=== PATIENT | female | born 1970 | race Caucasian/White ===

== ENCOUNTER 2023-06-24 10:25 | Day surgery (SDC) | payer BC ==
[~2023-06-24 10:25] MED LIST: LACTATED RINGERS 1,000 ML IV SCH; LIDOCAINE 1% (10MG/ML) FOR IV START INTRADERMA PRN; ONDANSETRON 4 MG/2 ML VIAL IVP PRN
[2023-06-24 10:57] VITALS: TEMP 97.8
[2023-06-24] MEDS ORDERED: PROPOFOL 10 MG/ML 20 ML VIAL IV ONE (11:34)
--- NOTE | 2023-06-24 11:41 | P.GSHP ---
History of Present Illness H&P Date: 06/24/23 Chief Complaint: Colon cancer screening 53-year-old female here for colonoscopy. She has not had one before. No family history of colon cancer. No bowel complaints. Past Medical History Past Medical History: Cancer Additional Past Medical History / Comment(s): melanoma 2021-had removed History of Any Multi-Drug Resistant Organisms: None Reported Past Surgical History: Orthopedic Surgery Additional Past Surgical History / Comment(s): reconstruction left knee Past Anesthesia/Blood Transfusion Reactions: No Reported Reaction Smoking Status: Never smoker Medications and Allergies Home Medications Medication Instructions Recorded Confirmed Type No Known Home Medications 06/19/23 06/24/23 History Allergies Allergy/AdvReac Type Severity Reaction Status Date / Time No Known Allergies Allergy Verified 06/24/23 10:49 Surgical - Exam Vital Signs Temp Pulse Resp BP Pulse Ox 97.8 F 66 16 128/64 99 06/24/23 10:56 06/24/23 10:56 06/24/23 10:56 06/24/23 10:56 06/24/23 10:56 Physical exam: General: Well-developed, well-nourished HEENT: Normocephalic, sclerae nonicteric Abdomen: Nontender, nondistended Extremities: No edema Neuro: Alert and oriented Assessment and Plan (1) Colon cancer screening Narrative/Plan: Will proceed with colonoscopy at this time. Current Visit: Yes Status: Acute Code(s): Z12.11 - ENCOUNTER FOR SCREENING FOR MALIGNANT NEOPLASM OF COLON SNOMED Code(s): 317423788
--- NOTE | 2023-06-24 11:53 | P.PCN ---
Date of Procedure: 06/24/23 Procedure(s) Performed: PREOPERATIVE DIAGNOSIS: Colon cancer screening POSTOPERATIVE DIAGNOSIS: Normal exam PROCEDURE: Colonoscopy ANESTHESIA: MAC SURGEON: J Luis Tolbert M.D. SPECIMENS: None ENDOSCOPIC PROCEDURE: The patient was placed on the endoscopy table in the left decubitus position. The Olympus colonoscope was inserted into the anus and passed under direct visualization to the base of the cecum. The appendiceal orifice was visualized. From that point the scope was slowly withdrawn inspecti ng all surfaces carefully. There were no neoplastic inflammatory or polypoid lesions throughout the cecum, ascending, transverse, descending, sigmoid and rectum. There was no visible diverticulosis noted. Digital rectal examination was normal. The patient was taken to the recovery room in stable condition per anesthesia guidelines. RECOMMENDATIONS: Resume diet. Repeat colonoscopy 10 years.
[2023-06-24 12:32] VITALS: BP 110/71; PULSE 68; RESP 18
== END 2023-06-24 12:34 | disposition home or self-care (01) ==
LOC: ORWHC2ENDO 10:25
PROVIDERS: ATTEND Surgery
DX: Z12.11 Encounter for screening for malignant neoplasm of colon (principal); Z79.899 Other long term (current) drug therapy
CPT/HCPCS: 45378; 81025; J2704

== ENCOUNTER → 2024-10-27 | Outpatient (CLI) | payer BC ==
--- NOTE | 2024-10-27 11:59 | CT ---
INDICATION: Patient age:Female; 54 years old; Reason for study: [facility] Protocol for left knee replacement, M17.12 UNILATERAL PRIMARY OSTEOARTHRITIS, LEFT KNE; PHH. COMPARISON: None TECHNIQUE: Thin section axial CT imaging of the entire left lower extremity was performed per [facility] protocol, wit hout the administration of IV contrast. Additional axial images of the bilateral hips and ankles with other knee were also obtained. Reformatted images in coronal and sagittal views obtained. FINDINGS: There is no evidence of acute fracture or dislocation. The hips are grossly unremarkable. Degenerative changes of the pubic symphysis. Tricompartmental joint space narrowing with marginal osteophytosis and subchondral cystic changes inv olving the left knee. Consistent with moderate to severe osteoarthritic change. Postsurgical changes with somewhat obliquely oriented screw involving the distal lateral femur additional screw tract iden tified involving the medial proximal tibia from probable ACL reconstruction. Small knee joint effusio n. Lateral right tibiofemoral joint is narrowed with subchondral cystic change consistent with mild to m oderate osteoarthritic change. The ankles grossly unremarkable. Right plantar calcaneal enthesophyte. The visualized soft tissues appear grossly unremarkable within the limits of unenhanced CT. IMPRESSION: 1. [facility] protocol for left knee joint replacement. [facility], , 10/27/2024 11:56 AM
== END | disposition home or self-care (01) ==
LOC: RADCTMAIN 10:53
PROVIDERS: ATTEND Orthopaedic Surgery
DX: M17.12 Unilateral primary osteoarthritis, left knee (principal)

== ENCOUNTER → 2024-10-30 | Outpatient (CLI) | payer BC ==
[2024-10-30 11:54] LABS: Prothrombin Time 10.5 sec (10.0-12.5)
[2024-10-30 22:58] LABS: HCT 41.5 % (37.2-46.3); HGB 13.6 g/dL (12.0-15.0); MCHC 32.8 g/dL (32.0-37.0); MCV 85.4 FL (80.0-97.0); Mean Platelet Volume 10.2 FL (9.5-12.2); NRBC Per 100 WBC 0 X 10*3/uL (0.00-0.01); Platelet Count 245 X 10*3/uL (140-440); RBC 4.86 X 10*6/uL (4.10-5.20); RDW 12.7 % (11.5-14.5); WBC 4.67 X 10*3/uL (4.50-10.00)
[2024-10-30 23:11] LABS: ALT 21 U/L (8-44); AST 19 U/L (13-35); Albumin 4.7 g/dL (3.8-4.9); Albumin/Globulin Ratio 2.24 Ratio (1.60-3.17); Alkaline Phosphatase 106 U/L (41-126); BUN/Creat Ratio 13.67 Ratio (12.00-20.00); Blood Urea Nitrogen 12.3 mg/dL (9.0-27.0); Calcium 9.3 mg/dL (8.7-10.3); Carbon Dioxide 26.4 mmol/L (21.6-31.8); Chloride 106 mmol/L (96-109); Globulin 2.1 g/dL (1.6-3.3); Glucose 103 mg/dL (70-110); Potassium 4.4 mmol/L (3.5-5.5); Sodium 142 mmol/L (135-145); Total Protein 6.8 g/dL (6.2-8.2)
== END | disposition home or self-care (01) ==
LOC: LABPAT 11:02
PROVIDERS: ATTEND Orthopaedic Surgery
DX: Z01.818 Encounter for other preprocedural examination (principal); M17.12 Unilateral primary osteoarthritis, left knee; R94.31 Abnormal electrocardiogram [ECG] [EKG]
CPT/HCPCS: 80053; 83036; 85027; 85610; 85730; 87070; 93005

== ENCOUNTER 2024-11-19 08:05 | Day surgery (SDC) | payer BC ==
[~2024-11-19 08:05] MED LIST changes: -LACTATED RINGERS 1,000 ML IV SCH; -LIDOCAINE 1% (10MG/ML) FOR IV START INTRADERMA PRN; -ONDANSETRON 4 MG/2 ML VIAL IVP PRN; +TRANEXAMIC 1,000 MG/100ML-NACL 1,000 MG in SALINE 1 100ML.BAG IV PRN; +TRANEXAMIC 1,000 MG/100ML-NACL 1,000 MG in SALINE 1 100ML.BAG IVPB PRN
[2024-11-19] MEDS ORDERED: HYDROmorphone 0.5 MG/0.5 ML SYRINGE IVP PRN ×3 (08:18→11:30)
[2024-11-19] MEDS: IV FLUID CONTINUATION 1,000 ML IV ONE (08:38)
[2024-11-19] MEDS: ACETAMINOPHEN TAB 500 MG TAB PO PRN (08:58)
[2024-11-19] MEDS: DOCUSATE 100 MG CAP PO PRN (08:58)
[2024-11-19] MEDS: oxyCODONE ER 10 MG TAB.ER.12H PO PRN (08:58)
--- NOTE | 2024-11-19 08:58 | P.HPOR ---
History of Present Illness H&P Date: 11/19/24 Very pleasant 54 year old female with a remote history of an ACL tear and reconstruction that has developed end stage knee arthritis. She presents today for a total knee replacement. Past Medical History Past Medical History: Cancer, Osteoarthritis (OA) Additional Past Medical History / Comment(s): melanoma 2021-had removed History of Any Multi-Drug Resistant Organisms: None Reported Past Surgical History: Orthopedic Surgery Additional Past Surgical History / Comment(s): ACL reconstruction Lt. knee, colonoscopy, melanoma removal nose x 4 surgeries Past Anesthesia/Blood Transfusion Reactions: No Reported Reaction Smoking Status: Never smoker - Past Family History Father Family Medical History: Congestive Heart Failure (CHF), Diabetes Mellitus Mother Family Medical History: Diabetes Mellitus Brother(s) Family Medical History: Diabetes Mellitus Medications and Allergies Home Medications Medication Instructions Recorded Confirmed Type No Known Home Medications 06/19/23 11/19/24 History Allergies Allergy/AdvReac Type Severity Reaction Status Date / Time No Known Allergies Allergy Verified 11/19/24 08:38 Physical Examination Alert and oriented Head NC/AT Non labored breathing Palpable pulses LEFT LE: healed incision over knee. Mild effusion. Moves toes/ankle up/down Results Xrays show severe knee OA and metallic interference screw in femur Assessment and Plan Assessment: Severe post-traumatic knee OA (prior ACL reconstruction) Plan: Ana has failed non-surgical treatment and presents today for a total knee replacement.
[2024-11-19] MEDS: fentaNYL (PF) 50 MCG/ML 2 ML AMP IVP PRN (09:01)
[2024-11-19] MEDS: MIDAZOLAM 2 MG/2 ML VIAL IV PRN (09:01)
[2024-11-19] MEDS: FAMOTIDINE 20 MG/2 ML VIAL IVP PRN (09:02)
[2024-11-19] MEDS: DEXAMETHASONE SOD PHOSPHATE 10 MG/ML 1 ML VIAL IV PRN (09:02)
[2024-11-19] MEDS: KETOROLAC 15 MG/ML 1 ML VIAL IVP PRN (09:02)
[2024-11-19] MEDS: ONDANSETRON 4 MG/2 ML VIAL IVP PRN (09:02)
[2024-11-19] MEDS: LACTATED RINGERS 1,000 ML IV SCH (09:03)
--- NOTE | 2024-11-19 09:11 | P.ANPRN ---
Procedure Note - Anesthesia - Nerve Block Performed Left Adductor Canal Single Time Out Performed: Yes Date of Procedure: 11/19/24 Procedure Start Time: 09:00 Procedure Stop Time: 09:07 Location of Patient: PreOp Indication: Acute Post-Operative Pain, Requested by Surgeon Sedation Type: Sedate with meaningful contact maintained Preparation: Sterile Prep Position: Supine Needle Types: Pajunk Needle Gauge: 21 Ultrasound used to visualize needle placement: Yes Ultrasound used to observe medication spread: Yes Injectate: 0.5% Ropivacaine (see comment for volume) (20 mL +10 mL of normal saline +4 mg of dexamethasone) Blood Aspirated: No Pain Paresthesia on Injection Noted: No Resistance on Injection: Normal Image Stored and Saved: Yes Events: Uneventful and Well Tolerated
--- NOTE | 2024-11-19 09:12 | P.ANPRN ---
Procedure Note - Anesthesia - Nerve Block Performed Left Avtarck Single Time Out Performed: Yes Date of Procedure: 11/19/24 Procedure Start Time: :08 Procedure Stop Time: :15 Location of Patient: PreOp Indication: Acute Post-Operative Pain, Requested by Surgeon Sedation Type: Sedate with meaningful contact maintained Preparation: Sterile Prep Position: Right Lateral Needle Types: Pajunk Needle Gauge: 21 Ultrasound used to visualize needle placement: Yes Ultrasound used to observe medication spread: Yes Injectate: 0.5% Ropivacaine (see comment for volume) (20 mL +10 mL of normal saline +4 mg of dexamethasone) Blood Aspirated: No Pain Paresthesia on Injection Noted: No Resistance on Injection: Normal Image Stored and Saved: Yes Events: Uneventful and Well Tolerated
[2024-11-19] MEDS ORDERED: LIDOCAINE 1% INJ 10MG/ML (20 ML MDV) ONE (09:33)
[2024-11-19] MEDS ORDERED: ROPIVACAINE 5 MG/ML 30 ML VIAL ONE (09:33)
[2024-11-19] MEDS ORDERED: fentaNYL (PF) 50 MCG/ML 2 ML AMP ONE (09:33)
[2024-11-19] MEDS ORDERED: PROPOFOL 10 MG/ML 20 ML VIAL IV ONE (09:33)
[2024-11-19] MEDS ORDERED: NEOSTIGMINE 1 MG/ML 10 ML VIAL ONE (09:33)
[2024-11-19] MEDS ORDERED: TRANEXAMIC 1,000 MG/100ML-NACL PREMIX BAG ONE (09:33)
[2024-11-19] MEDS ORDERED: ePHEDrine 50 MG/ML 1 ML VIAL ONE (09:33)
[2024-11-19] MEDS ORDERED: SUCCINYLCHOLINE CHLORIDE 200 MG/10 ML VIAL IV ONE (09:33)
[2024-11-19] MEDS ORDERED: DEXAMETHASONE SOD PHOSPHATE 4 MG/ML 1 ML VIAL ONE (09:33)
[2024-11-19] MEDS ORDERED: GLYCOPYRROLATE 0.2 MG/ML 2 ML VIAL ONE (09:33)
[2024-11-19] MEDS ORDERED: ROCURONIUM 10 MG/ML (5 ML VIAL) IV ONE (09:33)
[2024-11-19] MEDS ORDERED: SODIUM CHLORIDE 0.9% (PF) 10 ML VIAL ONE (09:33)
[2024-11-19] MEDS: ROPIVACAINE/EPI/CLONIDINE/KET 50 ML SYRINGE MISCELLANE PRN (10:01)
--- NOTE | 2024-11-19 11:23 | P.OP ---
Date of Procedure: 11/19/24 Preoperative Diagnosis: Severe, post-traumatic knee osteoarthritis, prior ACL reconstruction Postoperative Diagnosis: Same Procedure(s) Performed: 1. Left total knee arthroplasty 2. Computer assisted musculoskeletal navigation using CT/MRI images Implants: 1. Simran Triathlon CR Femur Size #4 2. Simran Triathlon [place] Tibial Base Size #4 3. Sheldon Triathlon CS poly Size #3, 10-mm 4. Sheldon Triathlon all poly patella, Size #32 Anesthesia: RO, regional Surgeon: Eamon Ochoa Full Stack Web Developer #1: Elver Rivas Estimated Blood Loss (ml): 100 IV fluids (ml): 800 Pathology: none sent Condition: stable Disposition: PACU Indications for Procedure: I met with the patient preoperatively in the office setting and discussed treatment of their symptomatic knee arthritis. They failed a long course of nonsurgical treatment and elected to proceed with an elective total knee replacement. I discussed the potential risks and complications at length and gave them ample time to ask questions. Risks discussed included: risks from anesthesia, superficial site surgical infection, acute and/or chronic periprosthetic joint infection, delayed wound healing, drainage, wound necrosis, instability, stiffness, stiffness requiring manipulation and/or revision surgery, damage to local blood vessels or nerves, aseptic loosening of the implants, extensor mechanism issues including disruption, patellar maltracking, avascular necrosis etc., continued or worsened knee pain, generalized dissatisfaction with surgical outcome, need for revision surgery, an inability to regain preinjury level of function, DVT, PE, other medical complications, and possibly loss of life or limb. The patient voiced their understanding that while these are the most common complications other less common complications a re possible. They provided both their verbal and written consent to go forward with surgery. Operative Findings: Severe tri-compartmental knee osteoarthritis Description of Procedure: The patient was identified in preoperative holding and the correct operative extremity was verified and marked with a marker. I reviewed the consent form with the patient at length. All of their questions were answered. The patient was given a block by anesthesia. They were then brought back to the operating room. They were transferred onto the operating room table where a general anesthetic, preoperative antibiotics, and tranexamic acid were administered by anesthesia. A tourniquet was applied to the proximal aspect of the operative extremity. The contralateral extremity was padded under the heel and secured to the operating room table with a nonsterile blue towel and tape. The ipsilateral arm was carefully draped across the patient's chest and secured with a pillow and foam. A post was applied over the lateral aspect of the ipsilateral thigh and a bolster was placed under the ipsilateral foot. I verified that the operative extremity was stable and the knee was flexed to 90. The operative extremity was then placed in a leg sharma, nonsterile drapes were applied, and the extremity was prepped and draped sterilely in the standard sterile fashion. Prior to starting surgery timeout was performed identifying the correct patient, operative extremity, and procedure. The leg was then elevated, exsanguinated with an Esmarch bandage, and the tourniquet was inflated. An anterior midline incision was made sharply with a scalpel. Once I had dissected deep to the superficial fascial layer medial and lateral flaps were elevated. A medial parapatellar arthrotomy was created. Upon opening the knee joint there were diffuse arthritic changes in all 3 compartments. The anterior horn of the medial meniscus were sharply released and a medial release was performed around the posterior medial corner of the knee to facilitate retractor placement. The fat pad was excised with electrocautery. The patella was found to be severely arthritic and a provisional cut was made with a sagittal saw to facilitate mobilization of the extensor mechanism during the procedure. Remnants of the ACL and PCL were then excised from the notch. 4 mm pins were then placed within the incision in the medial distal femur and proximal tibia. Arrays were applied to the pins and I verified they were completely tightened. The knee was then registered with the Cloudyn robot and manipulations in implant position were made to balance the knee and opitmize implant position. Using the Anthony robotic saw all cuts were made in accordance with our plan. After all bony fragments had been removed the cuts were verified with the planar probe. The tibia was then subluxed forward and sized. The knee was brought into flexion and a lamina aquatic physiotherapist was placed to allow removal of the meniscal remnants both medially and laterally as well as posterior osteophytes. Local anesthetic was then infiltrated around the joint capsule. Trial implants were then placed within the knee. Range of motion and collateral ligament tension was then evaluated. Adjustments in implant size and position were then made accordingly. Once the knee was felt to be appropriately balanced the Anthony pins were removed. The patella was then recut, sized, and punched. A trial patellar button was then placed. With the trial components in place, the patella tracked midline. The femur was then drilled and the trial component removed. The trial tibial component was then appropriately rotated, pinned, and prepared for the keel. All trial components were then removed from the knee. The knee was thoroughly irrigated with pulsatile lavage. Cement was prepared via vacuum mixing in a bowl on the back table. I then hand pressurized cement into the femur and tibia and placed the implants beginning with the tibial base tray and poly liner, femoral component, and finally the patellar button. All extruded cement was removed including from the pin sites. Once the cement had hardened the knee was evaluated one final time with the final polyethylene liner in place. The knee had full extension and flexion and felt stable to varus and valgus stress throughout the arc of motion. The tourniquet was released and with the tourniquet down the patella tracked midline. All bleeders were controlled with electrocautery. The knee was then soaked for 3 minutes with a dilute Betadine soak. The knee was thoroughly irrigated using 3 L of sterile saline and pulsatile lavage. The extensor mechanism was then reapproximated using pop off Vicryl sutures followed by a running barbed suture. The knee was then closed in layers with a 0 strata fix for the deep fascial layer, 2-0 strata fix for the superficial subcutaneous layer and Monocryl and Steri-Strips for the skin. A sterile dressing was applied. I verified that all instrument, sponge, and sharp counts were correct. The patient was then transferred off the operating room table, extubated, and brought to recovery having tolerated the procedure well. Elver Rivas PA-C was required as a skilled escrow assistant for patient positioning, draping, exposure, retraction, closure of wound and application of dressing PLAN: The patient can weight-bear as tolerated on the operative extremity. DVT prophylaxis with aspirin 81 mg twice a day based on preoperative risk stratification. Internal medicine for perioperative medical management. 2 doses of post-operative antibiotics. Physical therapy for gait training. Follow-up in the office in 2 weeks for wound check and x-rays of the knee including an AP and lateral.
[2024-11-19] MEDS ORDERED: HYDROmorphone 1 MG/ML 1 ML SYRINGE IVP PRN (11:30)
[2024-11-19] MEDS ORDERED: NALOXONE 0.4 MG/ML 1 ML VIAL IV PRN (11:30)
[2024-11-19] MEDS ORDERED: bisacodyL 10 MG SUPP RECTAL PRN (11:30)
[2024-11-19] MEDS ORDERED: MAGNESIUM HYDROXIDE 2,400 MG/30 ML CUP PO PRN (11:30)
[2024-11-19] MEDS ORDERED: ONDANSETRON 4 MG/2 ML VIAL IVP PRN (11:30)
[2024-11-19] MEDS ORDERED: NA PHOS,M-B/NA PHOS,DI-BA 133 ML ENEMA RECTAL PRN (11:30)
[2024-11-19] MEDS ORDERED: hydrOXYzine pamoate 25 MG CAP PO PRN (11:30)
[2024-11-19] MEDS ORDERED: diazePAM 5 MG TAB PO PRN ×2 (11:30)
--- NOTE | 2024-11-19 12:44 | XR ---
EXAMINATION TYPE: XR knee limited LT DATE OF EXAM: 11/19/2024 CLINICAL HISTORY: Postoperative evaluation Two views of the left knee are submitted. Identified are changes of total knee arthroplasty with fem oral and tibial components appearing well seated. Postsurgical soft tissue changes are noted. Align ment is anatomic. [facility], , 11/19/2024 12:42 PM
[2024-11-19] MEDS: SODIUM CHLORIDE 0.9% 1,000 ML IV SCH (13:32)
--- NOTE | 2024-11-19 16:18 | P.HPIM ---
History of Present Illness H&P Date: 11/19/24 54 year old F with no PMH presents to [facility] for elective surgery. She underwent L total knee arthroplasty with Dr. Ochoa. [facility] consulted for medical management of this patient. Patient reports well controlled pain in her left knee. Has not urinated yet. Not passing gas. No other complaints. L knee XR shows well seated changes of total knee arthroplasty with femoral and tibial components. General: non toxic, no distress, appears at stated age Derm: warm, dry Head: atraumatic, normocephalic, symmetric Eyes: EOMI, no lid lag, anicteric sclera Mouth: no lip lesion, mucus membranes moist Cardiovascular: Good distal perfusion in all 4 extremities Lungs: Breathing comfortably Ext: no gross muscle atrophy, no edema, no contractures Psych: Alert, oriented, appropriate affect Based on my assessment of this patient, this patient meets a high complexity level of care. Status post left total knee arthroplasty on 11/19 managed by Orthopedic surgery. CODE STATUS: FULL CODE DVT Prophylaxis: ASA 81 mg PO BID GI Prophylaxis: Designated medical POA if patient is not able to make medical decisions for themselves: I have reviewed the following transportation consultant notes: Operative note reviewed. I have reviewed the results of the following tests: KUB. I have ordered the following tests: Agree with CBC. I have discussed the care of this patient with the following independent historian: I have independently interpreted the following test below: I have discussed the management of this patient with the following physician: Past Medical History Past Medical History: Cancer, Osteoarthritis (OA) Additional Past Medical History / Comment(s): melanoma 2021-had removed History of Any Multi-Drug Resistant Organisms: None Reported Past Surgical History: Orthopedic Surgery Additional Past Surgical History / Comment(s): ACL reconstruction Lt. knee, colonoscopy, melanoma removal nose x 4 surgeries Past Anesthesia/Blood Transfusion Reactions: No Reported Reaction Past Psychological History: No Psychological Hx Reported Smoking Status: Never smoker Past Alcohol Use History: Occasional Additional Past Alcohol Use History / Comment(s): 1 drink/month Past Drug Use History: None Reported - Past Family History Father Family Medical History: Congestive Heart Failure (CHF), Diabetes Mellitus Mother Family Medical History: Congestive Heart Failure (CHF), Diabetes Mellitus Brother(s) Family Medical History: Diabetes Mellitus Medications and Allergies Home Medications Medication Instructions Recorded Confirmed Type Aspirin 81 mg PO BID #60 tab 11/19/24 Rx Diclofenac Sodium [Voltaren] 75 mg PO BID #60 tab 11/19/24 Rx Docusate [Colace] 100 mg PO BID #60 capsule 11/19/24 Rx HYDROcodone/APAP 5-325MG [[place] 1 - 2 tab PO Q6HR PRN #56 tab 11/19/24 Rx 5-325] Omeprazole [PriLOSEC] 40 mg PO DAILY #30 cap 11/19/24 Rx Ondansetron [Zofran] 4 mg PO Q8HR PRN #20 tab 11/19/24 Rx Allergies Allergy/AdvReac Type Severity Reaction Status Date / Time No Known Allergies Allergy Verified 11/19/24 08:38 Physical Exam Vitals: Vital Signs Temp Pulse Pulse Resp BP Pulse Ox 11/19/24 13:50 97.5 F L 97 16 123/75 97 11/19/24 13:30 79 17 127/70 97 11/19/24 13:15 60 16 124/62 95 11/19/24 13:00 65 15 127/63 96 11/19/24 12:45 60 16 125/65 95 11/19/24 12:30 71 16 124/64 96 11/19/24 12:15 78 17 127/62 95 11/19/24 12:00 84 16 148/78 100 11/19/24 11:47 96.8 F L 73 15 160/72 100 11/19/24 09:17 57 L 16 128/68 11/19/24 08:45 97.0 F L 65 16 118/69 98 Intake and Output 11/19/24 11/19/24 11/19/24 06:59 14:59 22:59 Intake Total 850 Output Total 200 Balance 650 Intake: IV 850 Output: Estimated Blood Loss 200 Other: Weight 88.8 kg Thrombosis Risk Factor Assmnt - Choose All That Apply Any of the Below Risk Factors Present?: Yes Each Factor Represents 1 point: Age 41-60 years, Obesity (BMI >25) Other Risk Factors: Yes Other congenital or acquired thrombophilia - If yes, enter type in comment: No Thrombosis Risk Factor Assessment Total Risk Factor Score: 2 Thrombosis Risk Factor Assessment Level: Low Risk
[2024-11-19] MEDS: HYDROcodone/APAP 5-325MG 1 EACH TAB PO PRN (16:47)
[2024-11-19 20:17] VITALS: RESP 17
[2024-11-19] MEDS: SENNOSIDES-DOCUSATE SODIUM 1 EACH TAB PO SCH (21:57)
[2024-11-19] MEDS: ASPIRIN 81 MG PO SCH (21:57)
[2024-11-19] MEDS ORDERED: TEMAZEPAM 15 MG CAP PO PRN (22:00)
--- NOTE | 2024-11-20 08:12 | P.DS ---
Providers Date of admission: 11/19/2024 Attending physician: Eamon Ochoa Consults: 11/19/24 11:30 Consult Physician Routine Consulting Provider: Akil Barajas Consult Reason/Comments: post op medical management Do you want consulting provider notified?: Yes Primary care physician: [facility] Course: the patient is a very pleasant 54-year-old female who underwent a complicated total knee replacement yesterday. Following surgery she was transferred to the orthopedic floor. She received 2 doses of postoperative antibiotics. She was transitioned from IV to oral pain medication. I saw her on postoperative day #1 and she was doing well. Her dressing was intact with no sign of drainage or strike through. Motor and sensory function were intact. She worked with physical therapy and did well. She was ultimately cleared for discharge home. Patient Condition at Discharge: Good Plan - Discharge Summary Discharge Rx Participant: Yes New Discharge Prescriptions: New Diclofenac Sodium [Voltaren] 75 mg PO BID #60 tab Omeprazole [PriLOSEC] 40 mg PO DAILY #30 cap Aspirin 81 mg PO BID #60 tab Docusate [Colace] 100 mg PO BID #60 capsule HYDROcodone/APAP 5-325MG [[place] 5-325] 1 - 2 tab PO Q6HR PRN #56 tab PRN Reason: Pain Ondansetron [Zofran] 4 mg PO Q8HR PRN #20 tab PRN Reason: Nausea Discharge Medication List Aspirin 81 mg PO BID #60 tab 11/19/24 [Rx] Diclofenac Sodium [Voltaren] 75 mg PO BID #60 tab 11/19/24 [Rx] Docusate [Colace] 100 mg PO BID #60 capsule 11/19/24 [Rx] HYDROcodone/APAP 5-325MG [[place] 5-325] 1 - 2 tab PO Q6HR PRN #56 tab 11/19/24 [Rx] Omeprazole [PriLOSEC] 40 mg PO DAILY #30 cap 11/19/24 [Rx] Ondansetron [Zofran] 4 mg PO Q8HR PRN #20 tab 11/19/24 [Rx] Follow up Appointment(s)/Referral(s): Eamon Ochoa MD [Medical Doctor] - 2 Weeks Activity/Diet/Wound Care/Special Instructions: 1. Weight-bear as tolerated on your operative extremity unless instructed otherwise. Use a walker or other assistive device to ambulate. 2. Leave surgical dressing in place. If your dressing becomes saturated with blood, there is drainage, or the dressing becomes loose please contact the office. 3. It is okay to shower with your surgical dressing, but do not submerge in water (no hot tubs, bath's, swimming etc.) 4. Make sure to take her blood clot prevention medication as prescribed (aspirin, Eliquis, Xarelto, and Plavix are commonly prescribed medications for blood clot prevention) 5. While taking [place] or Percocet for pain make sure you're taking a stool softener (Colace) and drink lots of water. 6. Keep all follow-up appointments as scheduled. You will usually be seen in 1-2 weeks following surgery. 7. Please contact the office with any questions or concerns [phone] Discharge Disposition: HOME WITH HOME HEALTH SERVICES
[2024-11-20] MEDS: MULTIVITAMINS, THERA 1 EACH TAB PO SCH (08:43)
[2024-11-20 08:48] VITALS: PULSE 67; TEMP 97.9
[2024-11-20 08:53] VITALS: BP 116/74
[2024-11-20 10:53] LABS: Basophils # (A) 0.03 X 10*3/uL (0.00-0.10); Basophils % (A) 0.2 %; Eosinophils # (A) 0 X 10*3/uL (0.04-0.35); Eosinophils % (A) 0 %; HCT 34.3 % (37.2-46.3); HGB 11.2 g/dL (12.0-15.0); Lymphocytes # (A) 0.96 X 10*3/uL (0.90-5.00); MCH 28.4 pg (27.0-32.0); MCHC 32.7 g/dL (32.0-37.0); MCV 86.8 FL (80.0-97.0); Mean Platelet Volume 10.4 FL (9.5-12.2); Monocytes # (A) 1.04 X 10*3/uL (0.20-1.00); Monocytes % (A) 6.5 %; NRBC Per 100 WBC 0 X 10*3/uL (0.00-0.01); Neutrophils % (A) 86.9 %; Platelet Count 243 X 10*3/uL (140-440); RBC 3.95 X 10*6/uL (4.10-5.20); RDW 12.8 % (11.5-14.5); WBC 15.89 X 10*3/uL (4.50-10.00)
[2024-11-20] MEDS: HYDROcodone/APAP 10-325MG 1 EACH TAB PO PRN (12:23)
== END 2024-11-20 14:40 | disposition home health service (06) ==
LOC: OR 08:05 → 4SSUR 13:28 → OR 11-20 14:40
PROVIDERS: ATTEND Orthopaedic Surgery
DX: M17.32 Unilateral post-traumatic osteoarthritis, left knee (principal); Z96.653 Presence of artificial knee joint, bilateral; Z98.890 Other specified postprocedural states; Z82.49 Family history of ischemic heart disease and other diseases of the circulatory system; Z83.3 Family history of diabetes mellitus; Z79.82 Long term (current) use of aspirin; Z79.899 Other long term (current) drug therapy
CPT/HCPCS: 0055T; 27447; 64447; 64999; 81025; 85025